=== PATIENT | female | born 1940 | race American Indian/Alaskan Native ===

== ENCOUNTER 2017-04-19 09:48 | Outpatient (CLI) | payer MEDICARE ==
--- NOTE | 2017-04-19 14:34 | Ultrasound Report ---
LEFT DIGITAL DIAGNOSTIC MAMMOGRAM with CAD and LEFT BREAST ULTRASOUND: 04/19/17 09:48:00 CLINICAL: Personal history of left breast cancer. COMPARISON:02/14/17. Earlier exams were done in [place] FINDINGS: The breast is heterogeneously dense, which may obscure small masses. An upper outer postsurgical scar with a few benign calcifications.No mass, suspicious architectural distortion or suspicious calcifications. Ultrasound of the left breast (including all four quadrants and the retroareolar area) was performed and demonstrated no mass. Shadowing at the postsurgical scar. A retroareolar cyst at 12 o'clock measures 4 x 3 x 3 mm. A benign retroareolar cyst at 12 o'clock measures 5 x 3 x 5 mm. A benign cyst versus small seroma at 2 o'clock 6 cm from the nipple measures 1.1 x 1.2 x 0.2 cm. Pronounced deep soft tissue edema from 9 to 5 o'clock. IMPRESSION: Benign upper outer postsurgical scar and benign skin thickening and edema of the breast. I suspect that these are benign post radiation changes. A few benign cysts. BI-RADS CATEGORY: 2 - - Benign RECOMMENDATION: Clinical followup and repeat mammogram in six months. ACR BI-RADS MAMMOGRAPHIC CODES: 0 = Needs additional imaging evaluation; 1 = Negative; 2 = Benign; 3 = Probably benign; 4 = Suspicious; 5 = Malignant; 6 = Known biopsy-proven malignancy COMMENT: 1. Dense breast tissue, i.e., adenosis, fibrocystic changes, etc., may obscure an underlying neoplasm. 2. Approximately 10% of cancers are not detected with mammography. 3. A negative mammography report should not delay biopsy if a clinically suspicious mass is present. COMMENT: Patient follow-up letters are generated by our [employer] application.
== END 2017-04-19 09:49 | disposition home or self-care (01) ==
LOC: SPVWC 09:48
PROVIDERS: ATTEND Surgery
DX: N60.02 Solitary cyst of left breast (principal); N64.89 Other specified disorders of breast; R92.8 Other abnormal and inconclusive findings on diagnostic imaging of breast; Z85.3 Personal history of malignant neoplasm of breast